=== PATIENT | female | born 2000 | race Caucasian/White ===

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

== ENCOUNTER 2023-12-23 18:33 | Emergency (ER) | payer SELFPAY ==
[~2023-12-23] VITALS: Ht 165.1 cm; Wt 97.5 kg
[2023-12-23 18:40] VITALS: O2SAT 100
[2023-12-23] MEDS ORDERED: ACET-2708 MT (18:58)
[2023-12-23] MEDS: ACETAMINOPHEN 325MG TABLET PO ONE (19:00)
[2023-12-23 20:10] VITALS: BP 144/68; PULSE 71; RESP 16; TEMP 36.39180; O2SAT 100
== END 2023-12-23 20:20 | disposition home or self-care (01) ==
LOC: ER 18:33
DX: M25.512 Pain in left shoulder (principal)
CPT/HCPCS: 99282